=== PATIENT | female | born 1945 | race Caucasian/White ===

== ENCOUNTER 2023-04-04 09:08 | Emergency (ER) | payer MEDICARE, OTHER ==
[2023-04-04] MEDS ORDERED: Meclizine HCl 25 MG TAB ONE (09:28)
[2023-04-04 09:40] LABS: #Eosinphils 0.1 thou/uL (0.0-0.7); #Lymphocytes 1.1 thou/uL (1.20-3.40); #Monocytes 0.6 thou/uL (0.11-0.59); #Neutrophils 3.7 thou/uL (1.40-6.50); %Basophils 0.6 % (0.0-1.0); %Eosinophils 1.9 % (0.0-10.0); %Lymphocytes 19.6 % (21.0-51.0); %Monocytes 10.5 % (0.0-10.0); %Neutrophils 67.4 % (42.0-75.0); Hematocrit 35.8 % (36.0-47.0); Hemoglobin 11.7 g/dL (12.0-16.0); Mean Corpuscular HGB CONC 32.7 g/dL (32.0-36.0); Mean Corpuscular Hemoglobin 31.1 pg (27.0-31.0); Mean Corpuscular Volume 95.1 fl (78.0-98.0); Mean Platelet Volume 9.2 fL (7.4-10.4); Platelet Count 269 10x3/uL (130-400); RBC Distribution Width 13.7 % (11.5-14.5); Red Blood Cell (RBC) Count 3.77 mill/uL (4.20-5.40); White Blood Cell (WBC) Count 5.5 10x3/uL (4.8-10.8)
[2023-04-04 09:58] LABS: Anion Gap 15 mmol/L (10-20); BUN (Urea Nitrogen) 29 mg/dL (9.8-20.1); Calc. Creatinine Clearance 0 mL/min (70-130); Calcium 8.4 mg/dL (7.8-10.44); Carbon Dioxide 22 mmol/L (23-31); Chloride 103 mmol/L (98-107); Estimated GFR 26; Glucose 89 mg/dL (83-110); Sodium 136 mmol/L (136-145)
[2023-04-04 09:59] LABS: Bilirubin Negative (Negative); Blood, Urine Negative (Negative); Glucose, Urine (Dipstick) Negative (Negative); Ketone, Urine Negative (Negative); Leukocyte Moderate (Negative); Nitrite Negative (Negative); Protein, Urine (Dipstick) Negative (Neg-Trace); Urobilinogen 0.2 mg/dL (Less than 2); pH, Urine 5.5 (5.0-9.0)
[2023-04-04 10:01] LABS: Clarity Hazy (Clear)
[2023-04-04 10:08] LABS: Bacteria/HPF Rare-Few HPF (None Seen); CAUTI Indications for Culture Alt mental st,lethar; Mucous/LPF Few LPF (<2+); RBC/HPF None Seen HPF (0-3); Urine Culture Reflex Yes Yes
[2023-04-04] MEDS ORDERED: cefTRIAXone (ROCEPHIN) 1 GM VIAL ONE (10:13)
== END 2023-04-04 10:34 | disposition home or self-care (01) ==
LOC: MADERS 09:08
DX: N39.0 Urinary tract infection, site not specified (principal); E86.0 Dehydration; R21 Rash and other nonspecific skin eruption
CPT/HCPCS: 36415; 70450; 71045; 80048; 81001; 83605; 85025; 87077; 87086; 87186; 93005; 96374; J0696